=== PATIENT | female | born 1980 | race Caucasian/White ===

== ENCOUNTER 2024-03-21 14:28 | Emergency (ER) | payer SELFPAY ==
[2024-03-21 14:31] VITALS: BP 132/83; PULSE 69; RESP 17; TEMP 36.6; O2SAT 99; BMI 31.4
--- NOTE | 2024-03-21 14:41 | HMH.EDGENADL ---
Discharge Plan Disposition Patient Disposition: Home, Self-Care Condition: Good Prescriptions Prescriptions: New cephalexin 500 mg capsule 500 mg PO BID 7 Days Qty: 14 0RF Referrals Follow up/Referrals: Ramon Napoles PA [Primary Care Provider] - See instructions Activity Restrictions/Add. Instructions Additional Instructions/Restrictions: Please return for suture removal in 5 days. You can follow-up with your PCP [facility] or ER for this. Return to medical provider for any worsening signs and symptoms including redness pain or drainage. Clinical Impressions Clinical Impression: Laceration of eyebrow, right Qualifiers: Encounter type: initial encounter Qualified Code(s): S01.111A - Laceration without foreign body of right eyelid and periocular area, initial encounter Laceration of vermilion border of upper lip Qualifiers: Encounter type: initial encounter Qualified Code(s): S01.511A - Laceration without foreign body of lip, initial encounter Laceration of oral cavity Qualifiers: Encounter type: initial encounter Qualified Code(s): S01.512A - Laceration without foreign body of oral cavity, initial encounter Stand Alone Forms Stand Alone Forms: Work/School Release Instructions Patient Instructions: DI for Laceration Repair Discharge ED Provider: Emeka Vasquez General Adult HPI <KAREN Higgins - Last Filed: 03/21/24 17:15> General Chief complaint: Fall Stated complaint: AO 03/21 13:30 Fall palm/right knee pain head pain Time Seen by Provider: 03/21/24 14:40 History of Present Illness HPI narrative: Patient presents for evaluation after a fall. Patient was at work and slipped falling and hitting her right side of her head onto the ground. She did not lose consciousness and was able to arise unassisted. However she did suffer a laceration above her right eye and through the right sided upper lip. She patient reports a loose tooth in the front but denies headache dizziness loss of vision loss of taste or smell. Related Data Previous Rx's Medication Instructions Recorded cephalexin 500 mg capsule 500 mg PO BID 7 days #14 caps 03/21/24 Allergies Allergy/AdvReac Type Severity Reaction Status Date / Time No Known Allergies Allergy Verified 03/21/24 14:54 PFS <KAREN Higgins - Last Filed: 03/21/24 17:15> [facility] Disclaimer: The information contained in this section may have been updated after the patient was seen, as this information can be updated by other users. Medical History (Updated 03/21/24 @ 17:15 by KAREN Higgins) Diabetes Social History (Updated 03/21/24 @ 17:15 by KAREN Higgins) Smoking Status: Never smoker alcohol intake: never current occupational status: employed Travel in the last 8 weeks: None <KAREN Higgins - Last Filed: 03/21/24 17:15> ROS Obtained: Yes Systems reviewed as appropriate & no additional complaints except as documented Physical Exam <KAREN Higgins - Last Filed: 03/21/24 17:15> General General appearance: alert and in no apparent distress Expanded Head Exam Head image: 1. Laceration 2. Laceration Eye Eye exam: Present normal appearance, PERRL and EOMI ENT ENT exam: Present normal exam and normal oropharynx Neck Neck exam: Present normal inspection; Absent tenderness Chest Chest inspection: Present normal inspection; Absent tenderness Respiratory Respiratory exam: Present normal lung sounds bilaterally Cardiovascular Cardiovascular exam: Present regular rate and normal rhythm Extremities Exam Extremities exam: Present normal inspection and full ROM; Absent tenderness Back Exam Back exam: Present normal inspection and full ROM; Absent tenderness Neurological Exam Neurological exam: Present alert, oriented X3 and CN II-XII intact Medical Decision Making <KAREN Higgins - Last Filed: 03/21/24 17:15> Medical Records Medical records reviewed: Yes I reviewed the patient's medical records. Dariel Inquiry Pt receiving controlled substance: No Vital Signs: 03/21/24 14:31 03/21/24 15:30 03/21/24 16:00 Temperature 97.8 F Temperature Source Oral Pulse Rate 96 H 84 Pulse Rate [Right] 69 Respiratory Rate 17 Blood Pressure 141/87 H 158/97 H Blood Pressure [Right Arm] 132/83 Blood Pressure Mean 115 106 Blood Pressure Mean [Right Arm] 99 Blood Pressure Source [Right Arm] Automatic Cuff 02 Sat by Pulse Oximetry 99 100 99 Oxygen Delivery Method Room Air Room Air 03/21/24 16:30 03/21/24 17:00 03/21/24 17:25 Temperature 98.2 F Temperature Source Oral Pulse Rate 94 H 90 80 Pulse Rate [Right] Respiratory Rate 16 Blood Pressure 167/98 H 172/92 H 170/85 H Blood Pressure [Right Arm] Blood Pressure Mean 121 118 Blood Pressure Mean [Right Arm] Blood Pressure Source [Right Arm] 02 Sat by Pulse Oximetry 98 97 Oxygen Delivery Method Room Air Lab Data Lab results reviewed: Yes I reviewed the patient's lab results. Lab Results 03/21/24 15:01: Urine HCG, Qual Negative Orders (Tests/Meds): ED MEDICATIONS Discontinued Medications Generic Name Dose Route Start Last Admin Trade Name Shari PRN Reason Stop Dose Admin Acetaminophen 1,000 mg 03/21/24 14:48 03/21/24 15:05 Acetaminophen 500mg Tab PO 03/21/24 14:49 1,000 mg ONCE ONE Administration Ibuprofen 800 mg 03/21/24 14:48 03/21/24 15:05 Ibuprofen 400 Mg Tablet PO 03/21/24 14:49 800 mg ONCE ONE Administration Lidocaine/Epinephrine 20 ml 03/21/24 16:12 03/21/24 17:12 Lidocaine 1% W/Epi 1:100,000 20ml Vial SQ 03/21/24 16:13 20 ml ONCE ONE Administration Tetanus/Reduced Diphtheria/Acell Pertussis 0.5 ml 03/21/24 14:50 03/21/24 15:05 Tet/Diphth/Pert-Adult 0.5ml Syringe IM 03/21/24 14:51 0.5 ml .ONCE ONE Administration ORDERS Category Date Time Status CT facial bones wo con Stat Cat Scan 03/21/24 14:[address] head/brain wo con Stat Cat Scan 03/21/24 14:48 Completed Urine , HCG Qual. Stat Lab 03/21/24 15:01 Completed Medical Decision Narrative: In summary patient is a 43-year-old female who presents to the emergency department for evaluation of a fall and facial trauma. Patient is hemodynamically stable upon arrival, afebrile. Physical exam is remarkable for laceration at the right eyebrow and through the right sided upper lip through the vermilion border. Patient has no midface tenderness. She has no palpable deformities. Glascow coma score is 15.. Differential diagnosis includes simple laceration versus contusion versus fracture versus closed head injury etc. Initial workup will be conducted with CT scan of the head without contrast and CT scan of the facial bones. Initial interventions include Tylenol and Motrin p.o. Initial workup reviewed by me and my informal interpretation of her CT scan of her head and face shows no acute fractures or intracranial injuries. Upon repeat evaluation patient had moderate improvement with initial intervention. Given this I closed her lacerations primarily. Patient had 5 stitches in the eyebrow laceration 3 stitches across the vermilion border and 8 stitches of fast gut in the inner upper lip for the stellate laceration. Patient is appropriate for discharge with suture removal in 5 days or return to ER for any worsening signs or symptoms. <Emeka Vasquez MD - Last Filed: 03/21/24 19:14> Vital Signs: 03/21/24 14:31 03/21/24 15:30 03/21/24 16:00 Temperature 97.8 F Temperature Source Oral Pulse Rate 96 H 84 Pulse Rate [Right] 69 Respiratory Rate 17 Blood Pressure 141/87 H 158/97 H Blood Pressure [Right Arm] 132/83 Blood Pressure Mean 115 106 Blood Pressure Mean [Right Arm] 99 Blood Pressure Source [Right Arm] Automatic Cuff 02 Sat by Pulse Oximetry 99 100 99 Oxygen Delivery Method Room Air Room Air 03/21/24 16:30 03/21/24 17:00 03/21/24 17:25 Temperature 98.2 F Temperature Source Oral Pulse Rate 94 H 90 80 Pulse Rate [Right] Respiratory Rate 16 Blood Pressure 167/98 H 172/92 H 170/85 H Blood Pressure [Right Arm] Blood Pressure Mean 121 118 Blood Pressure Mean [Right Arm] Blood Pressure Source [Right Arm] 02 Sat by Pulse Oximetry 98 97 Oxygen Delivery Method Room Air Lab Data Lab Results 03/21/24 15:01: Urine HCG, Qual Negative Orders (Tests/Meds): ED MEDICATIONS Discontinued Medications Generic Name Dose Route Start Last Admin Trade Name Shari PRN Reason Stop Dose Admin Acetaminophen 1,000 mg 03/21/24 14:48 03/21/24 15:05 Acetaminophen 500mg Tab PO 03/21/24 14:49 1,000 mg ONCE ONE Administration Ibuprofen 800 mg 03/21/24 14:48 03/21/24 15:05 Ibuprofen 400 Mg Tablet PO 03/21/24 14:49 800 mg ONCE ONE Administration Lidocaine/Epinephrine 20 ml 03/21/24 16:12 03/21/24 17:12 Lidocaine 1% W/Epi 1:100,000 20ml Vial SQ 03/21/24 16:13 20 ml ONCE ONE Administration Tetanus/Reduced Diphtheria/Acell Pertussis 0.5 ml 03/21/24 14:50 03/21/24 15:05 Tet/Diphth/Pert-Adult 0.5ml Syringe IM 03/21/24 14:51 0.5 ml .ONCE ONE Administration ORDERS Category Date Time Status CT facial bones wo con Stat Cat Scan 03/21/24 14:[address] head/brain wo con Stat Cat Scan 03/21/24 14:48 Completed Urine , HCG Qual. Stat Lab 03/21/24 15:01 Completed Medical Decision Narrative: In summary patient is a 43-year-old female who presents to the emergency department for evaluation of a fall and facial trauma. Patient is hemodynamically stable upon arrival, afebrile. Physical exam is remarkable for laceration at the right eyebrow and through the right sided upper lip through the vermilion border. Patient has no midface tenderness. She has no palpable deformities. Glascow coma score is 15.. Differential diagnosis includes simple laceration versus contusion versus fracture versus closed head injury etc. Initial workup will be conducted with CT scan of the head without contrast and CT scan of the facial bones. Initial interventions include Tylenol and Motrin p.o. Initial workup reviewed by me and my informal interpretation of her CT scan of her head and face shows no acute fractures or intracranial injuries. Upon repeat evaluation patient had moderate improvement with initial intervention. Given this I closed her lacerations primarily. Patient had 5 stitches in the eyebrow laceration 3 stitches across the vermilion border and 8 stitches of fast gut in the inner upper lip for the stellate laceration. Patient is appropriate for discharge with suture removal in 5 days or return to ER for any worsening signs or symptoms. I was consulted by the KADEN, and we discussed the complexity of the problems being addressed. I approved the treatment and management plan for this patient?s care in the Emergency Department, thus performing a substantive portion of the medical decision making. Emeka Vasquez MD Procedures <KAREN Higgins - Last Filed: 03/21/24 17:15> Laceration Laceration 1: Site: face (At the inferior right eyebrow border) Side (If applicable): right Size (cm): 2 Description: linear Local Anesthetic: lidocaine 1% and with epi Amount of anesthesia used (mL): 5 Pre-repair: wound explored, irrigated extensively and deep structures intact Skin layer closed with: nylon Size (cm): 6-0 Number of sutures: 5 Technique: simple, interrupted Laceration 2: Site: lip Side (If applicable): right (Upper vermilion border) Size (cm): 0.75 Description: linear and involves inderjit border Depth: simple, single layer Local Anesthetic: lidocaine 1% and with epi Amount of anesthesia used (mL): 3 Pre-repair: wound explored and deep structures intact Skin layer closed with: nylon Size (cm): 6-0 Number of sutures: 3 Technique: simple, interrupted Laceration 3: Site: lip (Inner right upper mucosa) Side (If applicable): right Size (cm): 4 Description: stellate Depth: simple, single layer Local Anesthetic: lidocaine 1% and with epi Amount of anesthesia used (mL): 5 Pre-repair: wound explored, irrigated extensively and deep structures intact Size (cm): 5-0 (Fast gut) Number of sutures: 8 Technique: simple, interrupted Critical Care <KAREN Higgins - Last Filed: 03/21/24 17:15> Critical Care Time Critical Care Time: No
--- NOTE | 2024-03-21 14:48 | CT_ITS ---
FINAL REPORT TECHNIQUE: Thin section axial CT with coronal reconstruction without IV contrast of the facial bones were obtained. This study was performed with techniques to keep radiation doses as low as reasonably achievable, (ALARA). Individualized dose reduction techniques using automated exposure control or adjustment of mA and/or kV according to the patient's size were employed. CLINICAL HISTORY: Fall with facial trauma COMPARISON: None FINDINGS: No fracture is present. Paranasal sinuses are clear. The TMJs are intact. Odontogenic disease is noted. IMPRESSION: No evidence of facial fracture Reviewed, Interpreted and Dictated by Mina Joyce MD Transcribed by Eve Chiang Authenticated and [facility]
--- NOTE | 2024-03-21 14:48 | CT_ITS ---
FINAL REPORT TECHNIQUE: Axial imaging of the head was obtained without contrast. This study was performed with techniques to keep radiation doses as low as reasonably achievable, (ALARA). Individualized dose reduction techniques using automated exposure control or adjustment of mA and/or kV according to the patient''s size were employed. CLINICAL HISTORY: Fall with facial trauma COMPARISON: None FINDINGS: No abnormal density is seen. Ventricles are normal. There is no hemorrhage. No mass effect is seen. Bone windows show no evidence of fracture. IMPRESSION: No acute findings Reviewed, Interpreted and Dictated by Mina Joyce MD Transcribed by Eve Chiang Authenticated and [facility]
[2024-03-21] MEDS: IBUPROFEN 400 MG TABLET 800 MG PO (15:05)
[2024-03-21] MEDS: TET/DIPHTH/PERT-ADULT 0.5ML SYRINGE 0.5 ML IM (15:05)
[2024-03-21] MEDS: ACETAMINOPHEN 500MG TAB 1000 MG PO (15:05)
[2024-03-21 15:10] LABS: Urine Pregnancy, HCG Qual. Negative (Negative)
[2024-03-21 15:30] VITALS: BP 141/87; PULSE 96; O2SAT 100
[2024-03-21 16:00] VITALS: BP 158/97; PULSE 84; O2SAT 99
[2024-03-21 16:30] VITALS: BP 167/98; PULSE 94; O2SAT 98
[2024-03-21 17:00] VITALS: BP 172/92; PULSE 90; O2SAT 97
[2024-03-21] MEDS: LIDOCAINE 1% W/EPI 1:100,000 20ML VIAL 20 ML SQ (17:12)
[2024-03-21 17:25] VITALS: BP 170/85; PULSE 80; RESP 16; TEMP 36.8; O2SAT 98
== END 2024-03-21 17:26 | disposition home or self-care (01) ==
PROVIDERS: Physician Assistant; Emergency Provider Emergency Medicine; PCP Student in an Organized Health Care Education/Training Program
DX: S01.81XA Laceration without foreign body of other part of head, initial encounter (principal); S01.511A Laceration without foreign body of lip, initial encounter; S01.512A Laceration without foreign body of oral cavity, initial encounter; W01.10XA Fall on same level from slipping, tripping and stumbling with subsequent striking against unspecified object, initial encounter; Z23 Encounter for immunization
CPT/HCPCS: 12014; 70450; 70486; 81025; 90471; 90715; 99284